=== PATIENT | male | born 1990 | race Caucasian/White ===

== ENCOUNTER 2021-02-10 14:40 | Emergency (ER) | payer OTHER ==
[~2021-02-10] VITALS: Ht 162.6 cm; Wt 65.8 kg
[2021-02-10 15:05] VITALS: BP_SYST 148
--- NOTE | 2021-02-10 15:05 | NUR ---
Patient triaged and placed in waiting room. VSS and patient appears in no acute distress at this time. Accompanied by self, awaiting available bed, and MD notified of need for MSE.
--- NOTE | 2021-02-10 15:10 | NUR ---
Pt brought by self, A&Ox4, pt presents to ER with bugbite on R upper arm, skin pink and warm, afebrile, will cont to monitor.
--- NOTE | 2021-02-10 18:23 | NUR ---
Dr Conteh evaluating patient in the triage room
--- NOTE | 2021-02-10 19:23 | NUR ---
Patient to ER bed 01 to gown for evaluation. Report given to MARVARN
--- NOTE | 2021-02-10 19:24 | NUR ---
Note jermanone in EDM - 02/10/21 at 2019 by GATITO Came in ER ambulatory from home this 30 year old female, AAOX4, breathing spontaneously at room air, not in distress noted. With chief complaints of right forearm bug bite since 4 days, no known medical/ no surgical history as claimed. No known allergy.vital signs stable
[2021-02-10] MEDS ORDERED: CLIN300C12 PO (19:28)
[2021-02-10] MEDS ORDERED: CLINDAMYCIN HCL 150 MG CAPSULE PO ONE (19:30)
--- NOTE | 2021-02-10 21:26 | NUR ---
GEGE Russell at bEDSIDE FOR I & D
[2021-02-10 21:35] VITALS: BP_SYST 148
--- NOTE | 2021-02-10 21:35 | NUR ---
Patient given written and verbal discharge instructions and verbalizes understanding. ER MD discussed with patient the results and treatment provided. Patient in stable condition. ID arm band removed. Rx of Clindamycin given. Patient educated on pain management and to follow up with PMD. Pain Scale 2/10 tolerable for pt. Opportunity for questions provided and answered. Medication side effect fact sheet provided.
== END 2021-02-10 21:35 | disposition home or self-care (01) ==
LOC: SED 14:40
DX: S50.861A Insect bite (nonvenomous) of right forearm, initial encounter (principal); L03.113 Cellulitis of right upper limb; Z79.899 Other long term (current) drug therapy; W57.XXXA Bitten or stung by nonvenomous insect and other nonvenomous arthropods, initial encounter; Y93.89 Activity, other specified; Y92.89 Other specified places as the place of occurrence of the external cause; Y99.8 Other external cause status
CPT/HCPCS: 87070-TC; 87075-TC; 99283